=== PATIENT | female | born 1975 | race Caucasian/White ===

== ENCOUNTER 2024-09-07 06:41 | Emergency (ER) | payer OTHER, SELFPAY ==
[2024-09-07] VITALS (7 sets, daily range): BP systolic 122–140; BP diastolic 76–81; PULSE 75–93; RESP 13–20; TEMP 36.6; O2SAT 94–100; BMI 36.6
--- NOTE | 2024-09-07 07:02 | DI.RAD.S_ITS ---
PROCEDURE: XR CHEST 1V INDICATIONS: dyspnea TECHNIQUE: One view of the chest was acquired. COMPARISON: Outside Facility, CR, XR CHEST 2V, 02/29/2024, 12:57. FINDINGS: Surgical changes and devices: None. Lungs and pleura: Lungs are clear. No pleural effusions or pneumothorax. Mediastinum: Mediastinal contours appear normal. Heart size is normal. Bones and chest wall: No suspicious bony lesions. Overlying soft tissues appear unremarkable. IMPRESSION: No acute cardiopulmonary abnormality is seen. Dictated by: Sravan Renae M.D. on 09/07/2024 at 7:39 Approved by: Sravan Renae M.D. on 09/07/2024 at 7:40
--- NOTE | 2024-09-07 07:06 | ED.SOB ---
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 She states that she is having to have persistent use of her nebulizer treatments at home she states that the symptoms are not getting any worse but are not getting any better she did not see her primary care doctor or any other physicians states that due to persistent symptoms decided come into the ED for further evaluation treatment. Patient without any other symptoms such as headache visual disturbances chest pain fever chills nausea vomiting abdominal pain or any other GI/ symptoms. Related Data Home Medications ?Medication ?Instructions ?Recorded ?Confirmed albuterol 90 mcg/actuation aerosol 90 mcg inhalation Q4HR PRN 05/06/24 09/07/24 inhaler shortness of breath beclomethasone dipropionate 80 1 inh inhalation BID 05/06/24 09/07/24 mcg/actuation HFA breath activated aerosol (Qvar RediHaler) fexofenadine 60 mg tablet (Jayshree 60 mg PO BID 05/06/24 09/07/24 Allergy) fluticasone fur. 100 mcg-umeclid 1 ea inhalation DAILY asthma 05/06/24 09/07/24 62.5 mcg-vilant 25 mcg inhalat.powder (Trelegy Ellipta) fluticasone propionate 50 2 spray intranasal DAILY 05/06/24 09/07/24 mcg/actuation nasal spray,suspension (Flonase Allergy Relief) ipratropium 0.5 mg-albuterol 3 mg 3 ml inhalation QID PRN shortness 05/06/24 09/07/24 (2.5 mg base)/3 mL nebulization of breath soln metoprolol tartrate 25 mg tablet 25 mg PO BID 05/06/24 09/07/24 montelukast 10 mg tablet 10 mg PO BEDTIME 05/06/24 09/07/24 (Singulair) omeprazole 20 mg capsule,delayed 20 mg PO DAILY 05/06/24 09/07/24 release sumatriptan succinate 25 mg tablet See Rx Instructions PO .COMPLEX 05/06/24 09/07/24 (Imitrex) Previous Rx's ?Medication ?Instructions ?Recorded albuterol sulfate 90 mcg/actuation 2 puff inhalation Q4-6H PRN 09/07/24 aerosol inhaler shortness of breath or wheezing #8.5 grams ipratropium 0.5 mg-albuterol 3 mg 3 ml inhalation Q6-8H PRN 09/07/24 (2.5 mg base)/3 mL nebulization shortness of breath or wheezing soln #90 mL prednisone 20 mg tablet 40 mg (2 x 20 mg) PO DAILY #10 tabs 09/07/24 Allergies Allergy/AdvReac Type Severity Reaction Status Date / Time Opioids - Morphine Analogues AdvReac Pass OUT Verified 09/07/24 06:49 Keflex Allergy Rash Uncoded 09/07/24 06:49 Review of Systems <Guillermo Wren DO - Last Filed: 09/07/24 07:10> Review of Systems Narrative: General: Denies fever, chills, weight loss HEENT: Denies headache, eye drainage, eye irritation, head trauma, sore throat, voice change Cardiovascular: Denies any chest pain, palpitations, tachycardia Respiratory: Positive cough, shortness of breath, denies wheeze stridor GI/: Denies any abdominal pain, nausea, vomiting, diarrhea, bright red blood per rectum, melanotic stools, urinary frequency, urinary retention, dysuria, hematuria MSK: Denies any joint pain, muscle pains, swelling Skin: Denies any rashes, lesions, discoloration Neuro: Denies any headache, lightheadedness, dizziness, fainting, weakness Psych: Denies SI/HI Patient History <Guillermo Wren DO - Last Filed: 09/07/24 07:10> Medical History (Updated 09/07/24 @ 09:05 by Lois Romero MD) Moderate persistent asthma Social History Smoking Status: Never smoker Smoking Status: Never smoker Exam <Guillermo Wren DO - Last Filed: 09/07/24 07:10> Narrative Exam Narrative: General: Cooperative, well-developed, not in acute distress HEENT: Normocephalic, atraumatic, PERRLA, normal sclera, eyelids normal Neck: Active full range of motion, atraumatic Chest: Normal to inspection, negative crepitus, no overlying erythema ecchymosis Respiratory: Patient coughing on exam, very minor expiratory wheeze in lower lung [place] Normal respiratory effort, not in acute respiratory distress, clear to auscultation bilaterally negative cough, tachypnea, rhonchi, rales Cardiology: Regular rate rhythm negative gallop, murmur, rubs GI/: No tenderness to palpation, soft, non rigid, normal to inspection, exam deferred MSK: Full active range of motion in all 4 extremities, atraumatic, no tenderness to palpation of any bony prominences Skin: No rashes or lesions noted Neuro: Alert awake oriented x3, moves all 4 extremities spontaneously, cranial nerves intact, able to answer all questions appropriately follows commands appropriately Psych: Cooperative, negative suicidal or homicidal ideations Initial Vital Signs Initial Vital Signs: Vital Signs Temperature 97.9 F 09/07/24 06:51 Pulse Rate 86 09/07/24 06:51 Respiratory Rate 20 09/07/24 06:51 Blood Pressure 140/81 09/07/24 06:51 Pulse Oximetry 100 09/07/24 06:51 Oxygen Delivery Method Room Air 09/07/24 06:51 <Lois Romero MD - Last Filed: 09/07/24 09:12> Initial Vital Signs Initial Vital Signs: Vital Signs Temperature 97.9 F 09/07/24 06:51 Pulse Rate 86 09/07/24 06:51 Respiratory Rate 20 09/07/24 06:51 Blood Pressure 140/81 09/07/24 06:51 Pulse Oximetry 100 09/07/24 06:51 Oxygen Delivery Method Room Air 09/07/24 06:51 Course <Guillermo Wren DO - Last Filed: 09/07/24 07:10> Orders Ordered: ED Orders 09/07/24 07:02 XR chest 1V Stat EKG-12 Lead Stat 09/07/24 07:03 Complete Blood Count AUTO DIFF Stat Comprehensive Metabolic Panel Stat Lipase Stat MAG [Magnesium] Stat NT-proBNP (BNP-Adult 18+) Stat PTT Partial Thromboplastin [place] Stat Prothrombin Time INR Stat Troponin & CK Cardiac Panel Stat 09/07/24 07:10 Covid-19 + FLU A/B + RSV - PCR Stat Discontinued Medications Albuterol/Ipratropium (Albuterol/Ipratropium 3 Ml Ampul) 3 ml INH NOW ONE Stop: 09/07/24 07:07 Last Admin: 09/07/24 07:17 Dose: 3 ml Documented By: MORGAN Methylprednisolone (Methylprednisolone 125 Mg/2 Ml Vial) 125 mg IV NOW ONE Stop: 09/07/24 07:07 Last Admin: 09/07/24 07:09 Dose: 125 mg Documented By: PETRA Vital Signs Vital signs: Vital Signs - 8 hr 09/07/24 06:51 09/07/24 07:17 Temperature 97.9 F Pulse Rate 86 93 H Respiratory Rate 20 20 Blood Pressure 140/81 Pulse Oximetry 100 97 Oxygen Delivery Method Room Air Room Air Oxygen Flow Rate 0 Fraction of Inspired Oxygen 21 <Lois Romero MD - Last Filed: 09/07/24 09:12> Orders Ordered: ED Orders 09/07/24 07:02 XR chest 1V Stat EKG-12 Lead Stat 09/07/24 07:03 Complete Blood Count AUTO DIFF Stat Comprehensive Metabolic Panel Stat Lipase Stat MAG [Magnesium] Stat NT-proBNP (BNP-Adult 18+) Stat PTT Partial Thromboplastin [place] Stat Prothrombin Time INR Stat Troponin & CK Cardiac Panel Stat 09/07/24 07:10 Covid-19 + FLU A/B + RSV - PCR Stat Discontinued Medications Albuterol/Ipratropium (Albuterol/Ipratropium 3 Ml Ampul) 3 ml INH NOW ONE Stop: 09/07/24 07:07 Last Admin: 09/07/24 07:17 Dose: 3 ml Documented By: MORGAN Methylprednisolone (Methylprednisolone 125 Mg/2 Ml Vial) 125 mg IV NOW ONE Stop: 09/07/24 07:07 Last Admin: 09/07/24 07:09 Dose: 125 mg Documented By: PETRA Vital Signs Vital signs: Vital Signs - 8 hr 09/07/24 06:51 09/07/24 07:17 Temperature 97.9 F Pulse Rate 86 93 H Respiratory Rate 20 20 Blood Pressure 140/81 Pulse Oximetry 100 97 Oxygen Delivery Method Room Air Room Air Oxygen Flow Rate 0 Fraction of Inspired Oxygen 21 MDM - SOB/Dyspnea <Guillermo Wren, DO - Last Filed: 09/07/24 07:10> Differential Diagnosis Differential diagnosis: Likely community acquired pneumonia, asthma with exacerbation and other (COVID, flu, pneumonia, electrolyte abnormality, ACS) Lab Data 09/07/24 07:03 09/07/24 07:03 Labs: Lab Results 09/07/24 09/07/24 Range/Units 07:03 07:10 WBC 7.4 (4.5-11.0) X10^3/uL RBC 4.65 (4.0-5.2) X10^6/uL Hgb 13.6 (12.0-16.0) g/dL Hct 39.9 (36-46) % MCV 85.9 (80-100) fL MCH 29.3 (26-34) PG MCHC 34.1 (30-36) % RDW 13.6 (11.6-14.8) % Plt Count 226 (150-400) X10^3/uL Neut % (Auto) 64.5 (50-75) % Lymph % (Auto) 22.1 L (25-40) % [place] % (Auto) 11.6 (3-14) % Eos % (Auto) 0.8 L (2-4) % Baso % (Auto) 1.0 (0-2) % Neut # (Auto) 4800 (8774-5042) /uL Lymph # (Auto) 1600 (3390-8904) /uL [place] # (Auto) 900 (0-900) /uL Eos # (Auto) 100 (0-450) /uL Baso # (Auto) 100 (0-100) /uL PT 11.1 (9.4-12.5) SECONDS INR 1.0 (0.9-1.3) APTT 30 (25.1-36.5) SECONDS Sodium 139 (137-145) mmol/L Potassium 3.9 (3.4-5.1) mmol/L Chloride 105 (98-107) mmol/L Carbon Dioxide 24 (22-32) mmol/L BUN 13 (7-17) mg/dL Creatinine 0.84 (0.52-1.04) mg/dL Estimated GFR > 60 (>60) mL/min BUN/Creatinine Ratio 15.5 (6-22) Glucose 113 H (70-99) mg/dL Calcium 9.9 (8.4-10.2) mg/dL Magnesium 2.0 (1.6-2.3) mg/dL Total Bilirubin 0.6 (0.2-1.3) mg/dL AST 28 (14-36) IU/L ALT 23 (<35) IU/L Alkaline Phosphatase 89 (38-126) U/L Total Creatine Kinase 88 (30-135) U/L Troponin I < 0.012 (0.01-0.034) ng/mL NT-Pro-B Natriuret Pep 53 (<125) pg/mL Total Protein 8.0 (6.3-8.2) g/dL Albumin 4.7 (3.5-5.0) g/dL Globulin 3.3 (1.7-4.1) g/dL Albumin/Globulin Ratio 1.4 (1.0-2.8) Lipase 61 (23-300) U/L SARS-CoV-2 (PCR) Positive H (Negative) Influenza A (RT-PCR) Flu a negative (NEGATIVE) Influenza B (RT-PCR) Flu b negative (NEGATIVE) RSV (PCR) Negative (Negative) MDM Narrative Medical decision making narrative: Patient is a 49-year-old female with past medical history of asthma and 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 She states that she has been having to use her duo nebs and albuterol inhaler more frequently over these past few weeks, she states that she did not see her doctor for this. She states that she did take an old Augmentin a few weeks ago states that she ?felt a little better but symptoms came back therefore decided come into the ED for further evaluation treatment. On initial examination patient with very minor expiratory wheezes in lower lung [place], patient coughing on exam but not in acute respiratory distress, she is not requiring any supplemental oxygen. Patient did receive Solu-Medrol and breathing treatment here 0700: Patient was signed out to Dr. Romero, final disposition pending full workup and re-evaluation <Lois Romero MD - Last Filed: 09/07/24 09:12> Lab Data Labs: Lab Results 09/07/24 09/07/24 Range/Units 07:03 07:10 WBC 7.4 (4.5-11.0) X10^3/uL RBC 4.65 (4.0-5.2) X10^6/uL Hgb 13.6 (12.0-16.0) g/dL Hct 39.9 (36-46) % MCV 85.9 (80-100) fL MCH 29.3 (26-34) PG MCHC 34.1 (30-36) % RDW 13.6 (11.6-14.8) % Plt Count 226 (150-400) X10^3/uL Neut % (Auto) 64.5 (50-75) % Lymph % (Auto) 22.1 L (25-40) % [place] % (Auto) 11.6 (3-14) % Eos % (Auto) 0.8 L (2-4) % Baso % (Auto) 1.0 (0-2) % Neut # (Auto) 4800 (3436-3264) /uL Lymph # (Auto) 1600 (6406-2237) /uL [place] # (Auto) 900 (0-900) /uL Eos # (Auto) 100 (0-450) /uL Baso # (Auto) 100 (0-100) /uL PT 11.1 (9.4-12.5) SECONDS INR 1.0 (0.9-1.3) APTT 30 (25.1-36.5) SECONDS Sodium 139 (137-145) mmol/L Potassium 3.9 (3.4-5.1) mmol/L Chloride 105 (98-107) mmol/L Carbon Dioxide 24 (22-32) mmol/L BUN 13 (7-17) mg/dL Creatinine 0.84 (0.52-1.04) mg/dL Estimated GFR > 60 (>60) mL/min BUN/Creatinine Ratio 15.5 (6-22) Glucose 113 H (70-99) mg/dL Calcium 9.9 (8.4-10.2) mg/dL Magnesium 2.0 (1.6-2.3) mg/dL Total Bilirubin 0.6 (0.2-1.3) mg/dL AST 28 (14-36) IU/L ALT 23 (<35) IU/L Alkaline Phosphatase 89 (38-126) U/L Total Creatine Kinase 88 (30-135) U/L Troponin I < 0.012 (0.01-0.034) ng/mL NT-Pro-B Natriuret Pep 53 (<125) pg/mL Total Protein 8.0 (6.3-8.2) g/dL Albumin 4.7 (3.5-5.0) g/dL Globulin 3.3 (1.7-4.1) g/dL Albumin/Globulin Ratio 1.4 (1.0-2.8) Lipase 61 (23-300) U/L SARS-CoV-2 (PCR) Positive H (Negative) Influenza A (RT-PCR) Flu a negative (NEGATIVE) Influenza B (RT-PCR) Flu b negative (NEGATIVE) RSV (PCR) Negative (Negative) MDM Narrative Medical decision making narrative: Patient is a 49-year-old female with past medical history of asthma and 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 She states that she has been having to use her duo nebs and albuterol inhaler more frequently over these past few weeks, she states that she did not see her doctor for this. She states that she did take an old Augmentin a few weeks ago states that she ?felt a little better but symptoms came back therefore decided come into the ED for further evaluation treatment. On initial examination patient with very minor expiratory wheezes in lower lung [place], patient coughing on exam but not in acute respiratory distress, she is not requiring any supplemental oxygen. Patient did receive Solu-Medrol and breathing treatment here 0700: Patient was signed out to Dr. Romero, final disposition pending full workup and re-evaluation Dr Romero. Care is assumed, patient is independently evaluated chart is reviewed Labs show a normal CBC, normal chemistries, undetectable troponin, low BNP + covid Chest x-ray is unremarkable On Re exam patient is feeling significantly better after steroids and the nebulizer treatment. She has minimal wheeze, no significant respiratory distress no indication for hospitalization or further workup. Findings and treatments reviewed with her questions answered and she is safe for discharge Discharge Plan Departure Patient Disposition: Home Clinical Impression: COVID-19 Asthma with exacerbation Qualifiers: Asthma severity: moderate Asthma persistence: persistent Qualified Code(s): J45.41 - Moderate persistent asthma with (acute) exacerbation Instructions: DI for Asthma -- Adult Activity Restrictions/Additional Instructions: Thank you for coming in today. Your COVID test did return positive. I suspect that this started with a viral infection, in this case likely COVID, that has since resolved. I do not think that you are infectious any longer. The virus caused an exacerbation of your asthma which is why you are continuing to cough. There was no indication for bacterial infection, collapsed lung, heart attack or heart attack like syndrome, no congestive heart failure I am going to have you complete 5 additional days of prednisone, I have given you refills for your DuoNeb inhaler as well as the albuterol metered-dose inhaler with all prescriptions sent to [facility] in [place] If you find that you are getting worse or develop any new symptoms, please feel free to return to the emergency department for further evaluation. Prescriptions: New prednisone 20 mg tablet 40 mg PO DAILY Qty: 10 0RF ipratropium-albuterol 0.5 mg-3 mg(2.5 mg base)/3 mL solution for nebulization 3 ml inhalation Q6-8H PRN (Reason: shortness of breath or wheezing) Qty: 90 0RF albuterol sulfate 90 mcg/actuation HFA aerosol inhaler 2 puff inhalation Q4-6H PRN (Reason: shortness of breath or wheezing) Qty: 8.5 0RF No Action Trelegy Ellipta 100-62.5-25 mcg blister with device 1 ea inhalation DAILY Qvar RediHaler 80 mcg/actuation HFA aerosol breath activated 1 inh inhalation BID albuterol 90 mcg/actuation aerosol 90 mcg inhalation Q4HR PRN (Reason: shortness of breath) montelukast [Singulair] 10 mg tablet 10 mg PO BEDTIME ipratropium-albuterol 0.5 mg-3 mg(2.5 mg base)/3 mL solution for nebulization 3 ml inhalation QID PRN (Reason: shortness of breath) omeprazole 20 mg capsule,delayed release(DR/EC) 20 mg PO DAILY fluticasone propionate [Flonase Allergy Relief] 50 mcg/actuation spray,suspension 2 spray intranasal DAILY Rx Instructions: administer into each nostril metoprolol tartrate 25 mg tablet 25 mg PO BID sumatriptan succinate [Imitrex] 25 mg tablet See Rx Instructions PO .COMPLEX Rx Instructions: take 1 tab at onset of headache; if no relief may repeat 1 tab after at least 2 hrs; max = 4 tabs/24 hr PO fexofenadine [Jayshree Allergy] 60 mg tablet 60 mg PO BID Referrals: Violet Sun ARNP [Primary Care Provider, Nursing] Stand Alone Forms: Patient Portal/API
[2024-09-07] MEDS: methylPREDNISolone 125 MG/2 ML VIAL IV (07:09)
[2024-09-07 07:15] LABS: Add Manual Diff / Slide Review NO; Basophils Absolute Auto 100 /uL (0-100); Eosinophils Absolute Auto 100 /uL (0-450); Eosinophils Percent Auto 0.8 % (2-4); Hematocrit 39.9 % (36-46); Hemoglobin 13.6 g/dL (12.0-16.0); Lymphocytes Absolute Auto 1600 /uL (1100-4500); Lymphocytes Percent Auto 22.1 % (25-40); Mean Corpuscular HGB Conc 34.1 % (30-36); Mean Corpuscular Hemoglobin 29.3 PG (26-34); Mean Corpuscular Volume 85.9 fL (80-100); Monocytes Absolute Auto 900 /uL (0-900); Monocytes Percent Auto 11.6 % (3-14); Neutrophils Absolute Auto 4800 /uL (1500-7000); Neutrophils Percent Auto 64.5 % (50-75); Platelet Count 226 X10^3/uL (150-400); Red Blood Cell Count 4.65 X10^6/uL (4.0-5.2); Red Cell Distribution Width 13.6 % (11.6-14.8); White Blood Cell Count 7.4 X10^3/uL (4.5-11.0)
[2024-09-07] MEDS: ALBUTEROL/IPRATROPIUM 3 ML AMPUL INH (07:17)
[2024-09-07 07:21] LABS: Prothrombin Time 11.1 SECONDS (9.4-12.5)
[2024-09-07 07:24] LABS: PTT Partial Thromboplastin Tim 30 SECONDS (25.1-36.5)
[2024-09-07 07:26] LABS: Alanine Aminotransferase 23 IU/L (<35); Albumin 4.7 g/dL (3.5-5.0); Albumin Globulin Ratio 1.4 (1.0-2.8); Alkaline Phosphatase 89 U/L (38-126); Aspartate Aminotransferase 28 IU/L (14-36); BUN Creatinine Ratio 15.5 (6-22); Bilirubin Total 0.6 mg/dL (0.2-1.3); Blood Urea Nitrogen 13 mg/dL (7-17); Calcium 9.9 mg/dL (8.4-10.2); Carbon Dioxide 24 mmol/L (22-32); Chloride 105 mmol/L (98-107); Creatine Kinase 88 U/L (30-135); Estimated Glomerular Filt Rate > 60 mL/min (>60); Globulin 3.3 g/dL (1.7-4.1); Glucose 113 mg/dL (70-99); HEMOLYSIS < 15 (0-50); Lipase 61 U/L (23-300); Potassium 3.9 mmol/L (3.4-5.1); Sodium 139 mmol/L (137-145)
--- NOTE | 2024-09-07 07:31 | EKG_ITS ---
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
[2024-09-07 07:38] LABS: NT-proBNP (BNP-Adult 18+) 53 pg/mL (<125); Troponin I < 0.012 ng/mL (0.01-0.034)
[2024-09-07 07:52] LABS: Influenza A - CEPHEID Flu A NEGATIVE (NEGATIVE); Influenza B - CEPHEID Flu B NEGATIVE (NEGATIVE); Respiratory Syncytial Virus Negative (Negative)
[2024-09-07 08:02] LABS: COVID-19 CEPHEID 4-PLEX PCR POSITIVE (Negative)
== END 2024-09-07 09:27 | disposition home or self-care (01) ==
PROVIDERS: Student in an Organized Health Care Education/Training Program; Emergency Provider Emergency Medicine; PCP Nurse Practitioner Family
DX: U07.1 COVID-19 (principal); J45.41 Moderate persistent asthma with (acute) exacerbation
CPT/HCPCS: 0241U; 36415; 71045; 80053; 82550; 83690; 83735; 83880; 84484; 85025; 85610; 85730; 93005; 93010; 94640; 96374; 99284; J2919